=== PATIENT | female | born 1960 | race Caucasian/White ===

== ENCOUNTER 2023-10-26 20:40 | Emergency (ER) | payer BC | END 2023-10-26 21:53 | disposition home or self-care (01) | LOC: DL.ED 20:40 | DX: S63.502A Unspecified sprain of left wrist, initial encounter (principal); Z79.899 Other long term (current) drug therapy; W18.40XA Slipping, tripping and stumbling without falling, unspecified, initial encounter | CPT/HCPCS: 73110-LT; 99283 ==